=== PATIENT | female | born 1985 | race Caucasian/White ===

== ENCOUNTER → 2017-12-22 | Outpatient (CLI) | payer BC | END | disposition home or self-care (01) | LOC: C.LAB 16:06 | PROVIDERS: ATTEND Nurse Practitioner Family | DX: E05.90 Thyrotoxicosis, unspecified without thyrotoxic crisis or storm (principal); E06.9 Thyroiditis, unspecified; R00.0 Tachycardia, unspecified; G47.09 Other insomnia; F41.9 Anxiety disorder, unspecified; R40.0 Somnolence ==

== ENCOUNTER → 2018-04-10 | Outpatient (CLI) | payer BC | END | disposition home or self-care (01) | LOC: C.LAB 15:54 | PROVIDERS: ATTEND Nurse Practitioner Family | DX: E06.9 Thyroiditis, unspecified (principal); G47.33 Obstructive sleep apnea (adult) (pediatric); Z99.89 Dependence on other enabling machines and devices ==